=== PATIENT | female | born 1970 | race Caucasian/White ===

== ENCOUNTER 2016-06-26 13:32 | Outpatient (CLI) | payer BC ==
[~2016-06-26] VITALS: Ht 149.9 cm; Wt 97.5 kg
--- OUTSIDE RECORDS SUMMARY | 2016-06-26 13:37 | XMS REPORT ---
Author LETY Gamez e[employer] Address Unknown Phone Unavailable Care Team Providers Care Hospice Entrance Attendant Name Role Phone LETY MARINO CP Unavailable Allergies, Adverse Reactions, Alerts Substance Reaction Event Type N.K.D.A. Info Not Available Non Drug Allergy Problems Problem Type Condition Code Onset Dates Condition Status Problem Plantar wart B07.0 Active Problem Iron deficiency anemia, unspecified D50.9 Active Problem Low back pain M54.5 Active Assessment Right-sided low back pain with right-sided sciatica M54.41 Active Problem Numbness in right leg R20.0 Active Problem Irregular menses N92.6 Active Medications Medication Code System Code Instructions Start Date End Date Status Dosage EC-Naprosyn [facility] [address]-45 375 MG Orally Twice a day May 11, 2015 Jul 10, 2015 1 tablet Flagyl [facility] [place] [address]-01 500 MG Orally 2 times a day May 11, 2015 May 18, 2015 1 tablet Cyclobenzaprine HCl [facility] [place] [address]-33 5 MG Orally Three times a day AprJul 10, 2015 1 tablet PredniSONE [facility] [place] [address]-78 20 MG Orally Once a day May 11, 2015 May 16, 2015 2 tablets daily Procedures Procedure Coding System Code Date Office Visit, Est Pt., Level 3 CPT-4 26476 May 11, 2015 URINE CULTURE/COLONY COUNT CPT-4 12428 May 11, 2015 Vital Signs Date/Time: May 11, 2015 Temperature 98.4 F Weight 217.1 lbs Height 59 in BMI 43.84 Index Blood Pressure Diastolic 80 mmHg Blood Pressure Systolic 132 mmHg Cardiac Monitoring Heart Rate 76 bpm Results Name Result Date Reference Range Unit Abnormality Flag UA W/CULTURE IF INDICATED (IN HOUSE) ----NICCI 1+ 20150511 ----NIT negative 20150511 ----SG 1.010 20150511 ----KET negative 20150511 ----GURVINDER negative 20150511 ----GLU negative 20150511 ----Odor n/a 20150511 ----pH 5.0 20150511 ----BLO 1+ 20150511 ----URO 0.2 20150511 ----Protein Negative 20150511 ----Lot # [id number] ----Exp date 20150511 ----Clarity Cloudy 20150511 ----Color Yellow [id number] Summary Purpose eClinicalWorks Submission
[2016-06-26] MEDS ORDERED: BUPIVACAINE 0.25% 30 ML (SENSORCAINE) VIAL ONE (13:43)
[2016-06-26] MEDS ORDERED: TRIAMCINOLONE ACET (KENALOG-40) 40 MG/ML 1 ML VIAL ONE (13:43)
[2016-06-26 14:09] VITALS: BP 139/74
[2016-06-26 14:46] VITALS: BP 142/96
--- NOTE | 2016-06-26 14:52 | Pain Medicine-Procedure ---
Procedure Pre-Op/Post-Op Diagnosis Diagnosis: disc disorder with radiculopathy, lumbar Indications for Operation Low back pain Attending Surgeon Heidi Procedure Date of Service: Jun 26, 2016 Procedure: Lumbar Epidural Steroid Injection at the L2-L3 level under Fluoroscopic Guidance Procedure: Patient was identified in the holding area. After risks, benefits, and alternatives were discussed with the patient, informed consent was obtained. Patient was brought to the fluoroscopy suite and placed prone on the procedure room table. A time out was performed. Vital signs were monitored throughout the procedure. The patients low back was prepped and draped in the usual sterile fashion. The patients skin was anesthetized using 2% Lidocaine. A Tuohy needle was inserted and advanced to the L2-L3 epidural space under fluoroscopic guidance using the loss of resistance technique and intermittent projection of fluoroscopy. There was no paresthesia with needle placement. The needle position was confirmed in both the AP and lateral view. After negative aspiration 2ml of contrast was injected under live fluoroscopy which showed good spread of the contrast in the epidural space at the appropriate level, there was no intravascular or subarachnoid spread. Again, after negative aspiration for heme or CSF, 2 ml of 0.25% Bupivicaine, 2ml of preservative free normal saline, and 80mg of Kenalog was injected. The needle was removed and a sterile bandage was placed and the patient was transferred to the recovery area in stable condition. After a brief period of observation, patient was discharged to home with no new neurological deficits and no apparent complications. Complications None MAHESH VIZCARRA MD Jun 26, 2016 2:51 pm
== END 2016-06-26 14:47 | disposition home or self-care (01) ==
LOC: CARD 13:32
PROVIDERS: ATTEND Pain Medicine Pain Medicine
DX: M51.16 Intervertebral disc disorders with radiculopathy, lumbar region (principal); Z79.899 Other long term (current) drug therapy
CPT/HCPCS: 62323

== ENCOUNTER 2021-09-28 10:41 | Outpatient (RCR) | payer BC | END 2021-10-11 | disposition home or self-care (01) | LOC: ONC 10:41 | PROVIDERS: ATTEND Internal Medicine Hematology & Oncology | DX: D50.9 Iron deficiency anemia, unspecified (principal); D75.838 Other thrombocytosis | CPT/HCPCS: 99214 ==

== ENCOUNTER → 2021-09-28 | Outpatient (CLI) | payer BC | LOC: LABNPT 11:47 | PROVIDERS: ATTEND Internal Medicine Hematology & Oncology | DX: D50.9 Iron deficiency anemia, unspecified (principal); D75.838 Other thrombocytosis | CPT/HCPCS: 82728; 83540; 83550 ==

== ENCOUNTER 2021-11-09 11:28 | Outpatient (RCR) | payer BC ==
[2021-11-08 12:19] LABS: BASOPHILS % (AUTO) 0 % (0-10); EOSINOPHILS # (AUTO) 0.1 10^3/uL (0.0-0.3); EOSINOPHILS % (AUTO) 2 % (0-10); HEMATOCRIT 37 % (35-52); LYMPHOCYTES % (AUTO) 28 % (12-44); MEAN CORPUSCULAR HEMOGLOBIN 23 pg (25-34); MEAN CORPUSCULAR HGB CONC 30 g/dL (32-36); MEAN CORPUSCULAR VOLUME 78 fL (80-99); MONOCYTES # (AUTO) 0.3 10^3/uL (0.0-1.0); MONOCYTES % (AUTO) 5 % (0-12); NEUTROPHILS # (AUTO) 4.8 10^3/uL (1.8-7.8); NEUTROPHILS % (AUTO) 65 % (42-75); PLATELET COUNT 549 10^3/uL (130-400); WHITE BLOOD COUNT 7.3 10^3/uL (4.3-11.0)
== END 2021-11-10 | disposition home or self-care (01) ==
LOC: ONC 11:28
PROVIDERS: ATTEND Internal Medicine Hematology & Oncology
DX: D50.9 Iron deficiency anemia, unspecified (principal)
CPT/HCPCS: 36415; 82728; 83540; 83550; 85025; 99213

== ENCOUNTER 2022-02-14 13:18 | Outpatient (RCR) | payer SELFPAY ==
[2022-02-14 13:54] LABS: BASOPHILS % (AUTO) 0 % (0-10); EOSINOPHILS # (AUTO) 0.2 10^3/uL (0.0-0.3); EOSINOPHILS % (AUTO) 2 % (0-10); HEMATOCRIT 41 % (35-52); LYMPHOCYTES # (AUTO) 1.6 10^3/uL (1.0-4.0); LYMPHOCYTES % (AUTO) 15 % (12-44); MEAN CORPUSCULAR HEMOGLOBIN 30 pg (25-34); MEAN CORPUSCULAR HGB CONC 34 g/dL (32-36); MEAN CORPUSCULAR VOLUME 89 fL (80-99); MEAN PLATELET VOLUME 9.6 fL (9.0-12.2); MONOCYTES # (AUTO) 0.5 10^3/uL (0.0-1.0); MONOCYTES % (AUTO) 5 % (0-12); NEUTROPHILS # (AUTO) 8.5 10^3/uL (1.8-7.8); NEUTROPHILS % (AUTO) 78 % (42-75); PLATELET COUNT 388 10^3/uL (130-400); WHITE BLOOD COUNT 10.9 10^3/uL (4.3-11.0)
== END 2022-03-13 | disposition home or self-care (01) ==
LOC: ONC 13:18
PROVIDERS: ATTEND Internal Medicine Hematology & Oncology
DX: D50.9 Iron deficiency anemia, unspecified (principal)
CPT/HCPCS: 82728; 83540; 83550; 85025; G0463; 99213

== ENCOUNTER 2022-09-07 20:24 | Emergency (ER) | payer BC ==
--- NOTE | 2022-09-07 20:51 | ED EENT ---
History of Present Illness General Stated Complaint: SORE THROAT WATERY EYES Source: patient History of Present Illness Date Seen by Provider: Sep 07, 2022 Time Seen by Provider: 20:35 Initial Comments PT ARRIVES VIA POV FROM HOME PT STATES SINCE Sunday09/05/22, SHE HAS HAD: -SUBJECTIVE FEVER -SORE THROAT -BODY ACHES -HEADACHE -NASAL CONGESTION -NON-PRODUCTIVE COUGH -EYES WATERY, AND PAINFUL SHE TOOK MUCINEX X 1 YESTERDAY, OTHERWISE HAS NOT TAKEN ANYTHING ELSE FOR SYMPTOMS SHE HAS NOT SOUGHT CARE UNTIL TONIGHT PT DOES WORK AT [employer]. PCP: RADHA SIMONS Allergies and Home Medications Allergies Coded Allergies: No Known Drug Allergies (Unverified , 09/07/22) Patient Home Medication List Home Medication List Reviewed: Yes Amoxicillin/Potassium Clav (Amox Tr-K Clv 875-125 mg Tab) 875 Mg-125 Mg Tablet, 1 EACH PO BID Prescribed by: LUIS AMADOR on 09/07/222129 Fluticasone Propionate (Flonase Allergy Relief) 50 Mcg/Actuation [place].susp, 2 SPRAY NS DAILY Prescribed by: LUIS AMADOR on 09/07/222129 Guaifenesin/Dextromethorphan (Mucinex Dm ER 1,200-60 mg Tab) 1,200 Mg-60 Mg Tbmp.12hr, 1 EACH PO BID Prescribed by: LUIS AMADOR on 09/07/222129 Lactobacillus Acidophilus (Acidophilus Lactobacillus) 1 Billion Unit/Gram Powder, 1 GM MC QID Prescribed by: LUIS AMADOR on 09/07/222129 Loratadine/Pseudoephedrine (Claritin-D 12 Hour Tablet) 5 Mg-120 Mg Tab.er.12h, 1 EACH PO BID Prescribed by: LUIS AMADOR on 09/07/222129 Review of Systems Review of Systems Constitutional: see HPI, fever, malaise Eyes: See HPI, Drainage (WATERING), Pain Ears: No Symptoms Reported Nose: see HPI, congestion Mouth: no symptoms reported Throat: see HPI, pain Respiratory: see HPI, cough; No short of breath Cardiovascular: no symptoms reported Gastrointestinal: no symptoms reported Musculoskeletal: see HPI (BODY ACHES) Skin: no symptoms reported Neurological: See HPI, Headache Past Eqlxuxo-Tqzsoj-Xpvugz Hx Patient Social History Tobacco Use?: Yes Tobacco type used: Cigarettes Smoking Status: Current Everyday Smoker Substance use?: No Alcohol Use?: No Past Medical History Surgeries: No Respiratory: No Cardiac: No Neurological: No Genitourinary: No Gastrointestinal: No Musculoskeletal: No Endocrine: No HEENT: No Cancer: No Psychosocial: Yes Anxiety, Depression Physical Exam Vital Signs Vital Signs - First Documented 09/07/22 20:34 Temp 37.2 Pulse 88 Resp 16 B/P (MAP) 148/87 (107) Pulse Ox 99 O2 Delivery Room Air Height, Weight, BMI Height: 4'11.00" Weight: 215lbs. 0.0oz. 97.066552xt; 43.4 BMI Method: General Appearance: WD/WN, no apparent distress, other (REEKS OF CIGARETTES) Eyes: bilateral eye PERRL, bilateral eye EOMI, bilateral eye other (CONJUNCTIVA INFLAMED BILATERALLY, WITH PROFUSE WATERING, SCANT AMOUNT OF PURULENT DRAINAGE IN CORNERS OF EYES. ) Ears: bilateral ear TM normal, bilateral ear other Mouth/Throat: No uvula swelling, No voice changes; other (EDENTULOUS. PHARYNX INFLAMED, NO EXUDATES. NO EVIDENCE OF ABSCESS; MODERATE NASAL CONGESTION AND CLEAR DRAINAGE. NO SINUS TENDERNESS. 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, no motor/sensory deficits, alert, normal mood/affect, oriented x 3 Skin: normal color, warm/dry, tattoos/piercings Progress/Results/Core Measures Results/Orders Lab Results Laboratory Tests Test 09/07/22 20:43 Range/Units Influenza Type A (RT-PCR) Not Detected Not Detecte Influenza Type B (RT-PCR) Not Detected Not Detecte SARS-CoV-2 RNA (RT-PCR) Not Detected Not Detecte Group A Streptococcus Screen NEGATIVE NEGATIVE My Orders Orders - LUIS AMADOR DO Rapid Strep A Screen (09/07/22 20:39) Covid 19 Inhouse Test (09/07/22 20:39) Influenza A And B By Pcr (09/07/22 20:39) Isolation Central Supply Req (09/07/22 20:39) Throat Culture Strep A Confirm (09/07/22 20:43) Amoxicillin/Clavulanate Tablet (Augmenti (09/07/22 21:30) Rx-Ofloxacin 0.3% Ophth Soln (Rx-Ocuflox (09/08/22 00:00) Rx-Ofloxacin 0.3% Ophth Soln (Rx-Ocuflox (09/07/22 21:30) Vital Signs/I&O 09/07/22 09/07/22 20:34 21:39 Temp 37.2 37.2 Pulse 88 81 Resp 16 16 B/P (MAP) 148/87 (107) 136/85 Pulse Ox 99 100 O2 Delivery Room Air Room Air Progress Progress Note : Progress Note PPE WORN COVID, FLU AND STREP TESTING DONE, AND ARE ALL NEGATIVE TEMP IS 37.2=99 HERE OTHER VITALS STABLE DISCUSSED TEST RESULTS, ANTICIPATED COURSE, SYMPTOMATIC TREATMENT, MEDICATIONS, NEED FOR FOLLOW UP AND RETURN PRECAUTIONS OFLOXACIN EYE DROPS SENT HOME WITH PT, AND GIVEN AUGMENTIN TABLET HERE. WORK EXCUSE GIVEN TO PT. REVIEWED PRIOR RECORDS--NO VISITS SINCE 2005, AND UNABLE TO VIEW THOSE RECORDS, [facility] DID NOT HAVE COMPUTER SYSTEM AT THAT TIME. Departure Impression Primary Impression: Upper respiratory infection Additional Impressions: Pharyngitis Conjunctivitis Disposition: HOME, SELF-CARE Condition: Stable Departure-Patient Inst. Referrals: YUMIKO SIMONS (PCP) Primary Care Physician Patient Instructions: Conjunctivitis ([facility]) ED, How to Use Eye Drops and Eye Ointment ED, Sore Throat, Adult ED, Bacterial Upper Respiratory Infection, Adult (DC) Add. Discharge Instructions: YOU MAY TAKE TYLENOL AND MOTRIN NEEDED FOR PAIN LOTS OF CLEAR LIQUIDS USE EYE DROPS DIRECTED FOR 5 DAYS FOLLOW UP WITH YOUR DR ON SUNDAY IF NO BETTER, RETURN TO ER IF SYMPTOMS WORSEN Scripts Loratadine/Pseudoephedrine (Claritin-D 12 Hour Tablet) 5 Mg-120 Mg Tab.er.12h 1 EACH PO BID, #20 TAB Prov: LUIS AMADOR DO 09/07/22 Guaifenesin/Dextromethorphan (Mucinex Dm ER 1,200-60 mg Tab) 1,200 Mg-60 Mg Tbmp.12hr 1 EACH PO BID, #20 EA Prov: LUIS AMADOR DO 09/07/22 Fluticasone Propionate (Flonase Allergy Relief) 50 Mcg/Actuation [place].susp 2 SPRAY NS DAILY, #1 EACH 2 SPRAYS PER NOSTRIL DAILY X 2 DAYS THEN 1 SPRAY DAILY Prov: LUIS AMADOR DO 09/07/22 Amoxicillin/Potassium Clav (Amox Tr-K Clv 875-125 mg Tab) 875 Mg-125 Mg Tablet 1 EACH PO BID for 10 Days, #20 TAB Prov: LUIS AMADOR DO 09/07/22 Lactobacillus Acidophilus (Acidophilus Lactobacillus) 1 Billion Unit/Gram Powder 1 GM MC QID for 10 Days, #1 EA Prov: LUIS AMADOR DO 09/07/22 Work/School Note: Work Release Form Date Seen in the Emergency Department: Sep 07, 2022 Return to Work: Sep 10, 2022 LUIS AMADOR DO Sep 07, 2022 20:51
[2022-09-07] MEDS ORDERED: FLUT9.9S NS (21:30)
[2022-09-07] MEDS ORDERED: AMOX1TAB12 PO (21:30)
[2022-09-07] MEDS ORDERED: AUGMENTIN 875 MG TAB (AMOXICILLIN/CLAVULANATE) PO SCH (21:30)
[2022-09-07] MEDS ORDERED: LORA1TAB59 PO ×2 (21:30)
[2022-09-07] MEDS ORDERED: LACT1POW8 MC (21:30)
[2022-09-07] MEDS ORDERED: GUAI1TBM19 PO (21:30)
[2022-09-07] MEDS ORDERED: RX-OFLOXACIN 0.3% OPHTH SOLN 5 ML ONE (21:30)
[2022-09-07 21:39] VITALS: BP 136/85
[2022-09-08] MEDS ORDERED: RX-OFLOXACIN 0.3% OPHTH SOLN 5 ML OP SCH
== END 2022-09-07 21:39 | disposition home or self-care (01) ==
LOC: EDUNIT# 20:24 → ER 20:27
DX: J06.9 Acute upper respiratory infection, unspecified (principal); H10.9 Unspecified conjunctivitis; F17.210 Nicotine dependence, cigarettes, uncomplicated; Z20.822 Contact with and (suspected) exposure to COVID-19; Z28.310 Unvaccinated for COVID-19
CPT/HCPCS: 87430; 87636; 99283